=== PATIENT | male | born 1945 | race Caucasian/White ===

== ENCOUNTER 2020-12-09 10:25 | Emergency (ER) | payer MEDICARE ==
[~2020-12-09] VITALS: Ht 170.2 cm; Wt 104.8 kg
[~2020-12-09 10:25] MED LIST: DIOVAN HCT 3201 EACH; PREDNISONE 20 M20 M1 PO
[2020-12-09 10:28] VITALS: BP 139/76
[2020-12-09] MEDS ORDERED: PACERONE 200 M200 M1 PO (10:33)
[2020-12-09] MEDS ORDERED: ASA81BEC PO (10:33)
[2020-12-09] MEDS ORDERED: ELIQUIS5 MG PO (10:34)
[2020-12-09] MEDS ORDERED: CARVEDILOL12.5 MG PO (10:34)
[2020-12-09] MEDS ORDERED: RANOLAZINE ER500 MG PO (10:35)
[2020-12-09] MEDS ORDERED: LEVO-T50 MCG PO (10:35)
[2020-12-09] MEDS ORDERED: HYDREA 500 MG500 M1 PO (10:35)
[2020-12-09] MEDS ORDERED: PANTOPRAZOLE SO40 M3 PO (10:35)
[2020-12-09] MEDS ORDERED: DIOVAN160 MG PO (10:36)
[2020-12-09] MEDS ORDERED: METHOCARBAMOL500 M2 PO (10:36)
[2020-12-09] MEDS ORDERED: DOXYCYCLINE 10100 MG PO (10:36)
== END 2020-12-09 12:16 | disposition home or self-care (01) ==
LOC: ER 10:25
DX: S71.101D Unspecified open wound, right thigh, subsequent encounter (principal); Z79.82 Long term (current) use of aspirin; Z79.3 Long term (current) use of hormonal contraceptives; Z79.899 Other long term (current) drug therapy; Z88.0 Allergy status to penicillin; W19.XXXD Unspecified fall, subsequent encounter

== ENCOUNTER → 2020-12-12 | Outpatient (CLI) | payer OTHER ==
[~2020-12-12] MED LIST changes: +ASA81BEC PO; +CARVEDILOL12.5 MG PO; +DIOVAN160 MG PO; +DOXYCYCLINE 10100 MG PO; +ELIQUIS5 MG PO; +HYDREA 500 MG500 M1 PO; +LEVO-T50 MCG PO; +METHOCARBAMOL500 M2 PO; +PACERONE 200 M200 M1 PO; +PANTOPRAZOLE SO40 M3 PO; +RANOLAZINE ER500 MG PO
== END ==
LOC: HYPER 08:27
PROVIDERS: ATTEND Emergency Medicine
DX: T81.31XA Disruption of external operation (surgical) wound, not elsewhere classified, initial encounter (principal); L97.112 Non-pressure chronic ulcer of right thigh with fat layer exposed; R60.0 Localized edema; E66.9 Obesity, unspecified; F41.9 Anxiety disorder, unspecified; Z87.891 Personal history of nicotine dependence; Z79.82 Long term (current) use of aspirin; Z68.34 Body mass index [BMI] 34.0-34.9, adult; Y92.238 Other place in hospital as the place of occurrence of the external cause; Y83.8 Other surgical procedures as the cause of abnormal reaction of the patient, or of later complication, without mention of misadventure at the time of the procedure

== ENCOUNTER → 2020-12-12 | Outpatient (CLI) | payer OTHER | LOC: SJCVCIMAG 14:55 | PROVIDERS: ATTEND Emergency Medicine | DX: I73.9 Peripheral vascular disease, unspecified (principal); S81.801A Unspecified open wound, right lower leg, initial encounter; X58.XXXA Exposure to other specified factors, initial encounter; Y92.89 Other specified places as the place of occurrence of the external cause; Y99.8 Other external cause status ==

== ENCOUNTER 2020-12-16 12:51 | Inpatient (IN) | payer OTHER ==
[~2020-12-16] VITALS: Ht 170.2 cm; Wt 96.6 kg
[2020-12-16 12:55] VITALS: BP 154/79
[2020-12-16 15:27] LABS: ABSOLUTE NEUTROPHILS 6.5 thou/uL (1.4-8.2); BASOPHILS 0.7 % (0.0-2.0); EOSINOPHILS 1.2 % (0.0-3.0); HEMATOCRIT 33.2 % (42.0-52.0); HEMOGLOBIN 11.6 gm/dL (14.0-18.0); LYMPHOCYTES 9.8 % (24.0-44.0); MCH 39.7 pg (26.0-34.0); MCHC 34.9 g/dL (28.0-37.0); MCV 113.8 fL (80.0-100.0); PLATELET COUNT 846 thou/uL (150-400); POLYS 72.3 % (36.0-66.0); RBC 2.91 mil/uL (4.50-6.00); RDW 30.2 % (10.5-14.5); WBC 8.9 thou/uL (4.0-11.0)
[2020-12-16 15:46] LABS: APTT 31.2 Seconds (24.5-32.8); INR 1.07; PROTIME 11.6 Seconds (10.5-12.1)
[2020-12-16 16:07] LABS: CALCIUM 9.5 mg/dL (8.5-10.1); CREATININE 1.2 mg/dL (0.7-1.3); POTASSIUM 4.5 mmol/L (3.5-5.1)
[2020-12-16 16:13] LABS: ALBUMIN 3.9 g/dL (3.4-5.0); TOTAL BILIRUBIN 0.5 mg/dL (0.2-1.0); TOTAL PROTEIN 7.9 g/dL (6.4-8.2)
[2020-12-16] MEDS ORDERED: DOXYCYCLINE 10100 MG PO (16:27)
[2020-12-16 16:45] LABS: POLYCHROMASIA 1+
[2020-12-16 16:46] LABS: MACROCYTES 3+; MICROCYTES 1+
[2020-12-16 16:47] LABS: ANISOCYTOSIS 3+; LARGE PLATELETS OCCASIONAL
[2020-12-16 17:22] VITALS: BP 171/90
[2020-12-16 18:09] VITALS: BP 170/95
[2020-12-16 18:36] VITALS: BP 166/97
[2020-12-16 19:24] VITALS: BP 157/89
--- NOTE | 2020-12-16 20:40 | NUR ---
Pt. was admitted late during the day shift. He is alert and oriented and offers no complaints. Pt. may have a few drips of blood from his left nares at times. Rhino rocket to left nare is in place. Admission assessment and history is completed. Bed alarm is on.
[2020-12-17 05:33] LABS: HEMATOCRIT 29.7 % (42.0-52.0); HEMOGLOBIN 10.1 gm/dL (14.0-18.0); MCH 38.7 pg (26.0-34.0); MCV 113.8 fL (80.0-100.0); RBC 2.61 mil/uL (4.50-6.00); RDW 29.9 % (10.5-14.5); WBC 8.7 thou/uL (4.0-11.0)
--- NOTE | 2020-12-17 05:41 | NUR ---
Pt. rested quietly at intervals during the night when checked on during frequent rounds. He has been up to use the urinal with standby assistance. Bed alarm is on.
[2020-12-17 05:47] LABS: CALCIUM 8.6 mg/dL (8.5-10.1); CREATININE 1.1 mg/dL (0.7-1.3); POTASSIUM 3.7 mmol/L (3.5-5.1)
[2020-12-17 07:42] VITALS: BP 136/87
[2020-12-17] MEDS ORDERED: BACTRIM DS TAB1 EACH PO (10:48)
[2020-12-17 10:55] VITALS: BP 131/85
--- NOTE | 2020-12-17 11:50 | NUR ---
Assumed pt care this am, vs stable. Seen by ENT this am. Rhinorocket in place in the left nostril, minimal drainiage noted. Dc instructions given, prescriptions sent to the pharmacy. POC followed, minimal discomfort in the left nostril. IV removed, awaiting daughter to cook pickled meat the pt. Diet and medications are tolerated well.
--- NOTE | 2020-12-17 14:34 | EKG ---
[place] [address] [address] [facility] [place] [address] ELECTROCARDIOGRAM REPORT Name: ANIL WINKLER Room #: 452-P [facility] IN M.R.#: [id number] Admission: 12/16/20 Attend Phys: Oscar Godwin MD Discharge: 12/17/20 Date of : 43 Report #: [id number] [facility] ED Test Date: 2020-12-16 Test Time: 15:23:22 Pat Name: ANIL WINKLER Department: Room: [facility] Gender: M Sander Operator: HEATHER : 1945 Requested By: Miguel Rae Order Number: [id number] MD: Deandre Bateman Measurements Intervals [place] Rate: 63 P: 58 [place]: 190 QRS: 3 QRSD: 86 T: 26 QT: 457 QTc: 468 Interpretive Statements Sinus rhythm Abnormal R-wave progression, early transition No previous ECG available for comparison Electronically Signed On 12-17-2020 14:34:24 CDT by Deandre Bateman [email or web address] <ELECTRONICALLY SIGNED> By: Deandre Bateman MD, [facility] 12/17/20 1434 1523 1523 Deandre Bateman MD, FACC /EPI
== END 2020-12-17 13:40 | disposition home or self-care (01) | DRG 151 ==
LOC: ER 12:51 → EROBS 17:14 → 4W 18:12
PROVIDERS: Emergency Medicine; ADMIT Hospitalist; ATTEND Hospitalist
PROC: 2Y41X5Z Packing of Nasal Region using Packing Material (ICD-10-PCS; principal; 2020-12-16)
DX: R04.0 Epistaxis (principal); D64.9 Anemia, unspecified; I48.91 Unspecified atrial fibrillation; I25.10 Atherosclerotic heart disease of native coronary artery without angina pectoris; I10 Essential (primary) hypertension; E78.5 Hyperlipidemia, unspecified; E03.9 Hypothyroidism, unspecified; S81.809A Unspecified open wound, unspecified lower leg, initial encounter; X58.XXXA Exposure to other specified factors, initial encounter; Z79.82 Long term (current) use of aspirin; Z79.01 Long term (current) use of anticoagulants; Z79.899 Other long term (current) drug therapy; I25.2 Old myocardial infarction; Z88.0 Allergy status to penicillin; Y93.89 Activity, other specified; Y92.89 Other specified places as the place of occurrence of the external cause; Y99.8 Other external cause status
CPT/HCPCS: 10045

== ENCOUNTER → 2020-12-19 | Outpatient (CLI) | payer OTHER ==
[~2020-12-19] MED LIST changes: +BACTRIM DS TAB1 EACH PO
== END ==
LOC: HYPER 08:45
PROVIDERS: ATTEND Emergency Medicine
DX: T81.31XD Disruption of external operation (surgical) wound, not elsewhere classified, subsequent encounter (principal); L97.112 Non-pressure chronic ulcer of right thigh with fat layer exposed; R60.0 Localized edema; E66.9 Obesity, unspecified; F41.9 Anxiety disorder, unspecified; Z87.891 Personal history of nicotine dependence; Z79.82 Long term (current) use of aspirin; Z68.34 Body mass index [BMI] 34.0-34.9, adult; Y83.8 Other surgical procedures as the cause of abnormal reaction of the patient, or of later complication, without mention of misadventure at the time of the procedure

== ENCOUNTER → 2021-01-03 | Outpatient (CLI) | payer OTHER | LOC: HYPER 08:33 | PROVIDERS: ATTEND Emergency Medicine | DX: T81.31XD Disruption of external operation (surgical) wound, not elsewhere classified, subsequent encounter (principal); L97.112 Non-pressure chronic ulcer of right thigh with fat layer exposed; R60.0 Localized edema; F41.9 Anxiety disorder, unspecified; M19.90 Unspecified osteoarthritis, unspecified site; E66.9 Obesity, unspecified; Z68.34 Body mass index [BMI] 34.0-34.9, adult; Z91.81 History of falling; Z87.891 Personal history of nicotine dependence; Z79.899 Other long term (current) drug therapy; Z79.82 Long term (current) use of aspirin; Y83.8 Other surgical procedures as the cause of abnormal reaction of the patient, or of later complication, without mention of misadventure at the time of the procedure ==

== ENCOUNTER → 2021-01-17 | Outpatient (CLI) | payer OTHER | LOC: HYPER 08:48 | PROVIDERS: ATTEND Emergency Medicine | DX: T81.31XD Disruption of external operation (surgical) wound, not elsewhere classified, subsequent encounter (principal); L97.112 Non-pressure chronic ulcer of right thigh with fat layer exposed; L89.623 Pressure ulcer of left heel, stage 3; R60.0 Localized edema; E66.9 Obesity, unspecified; F41.9 Anxiety disorder, unspecified; M19.90 Unspecified osteoarthritis, unspecified site; Z68.34 Body mass index [BMI] 34.0-34.9, adult; Z91.81 History of falling; Z87.891 Personal history of nicotine dependence; Z79.899 Other long term (current) drug therapy; Y83.8 Other surgical procedures as the cause of abnormal reaction of the patient, or of later complication, without mention of misadventure at the time of the procedure ==